=== PATIENT | male | born 1985 | race Caucasian/White ===

== ENCOUNTER 2018-10-27 13:07 | Emergency (ER) | payer OTHER ==
[~2018-10-27] VITALS: Ht 170.2 cm; Wt 97.5 kg
[2018-10-27] MEDS ORDERED: IBUPROFEN 800800 M1 PO (15:11)
[2018-10-27] MEDS ORDERED: KEFLEX500 M1 PO (15:11)
[2018-10-27] MEDS ORDERED: NORCO 5-325 TA1 EAC1 PO (15:11)
[2018-10-27 15:21] VITALS: BP 153/98
== END 2018-10-27 15:39 | disposition home or self-care (01) ==
LOC: M.ERS 13:07
DX: S62.603A Fracture of unspecified phalanx of left middle finger, initial encounter for closed fracture (principal); S61.215A Laceration without foreign body of left ring finger without damage to nail, initial encounter; S61.213A Laceration without foreign body of left middle finger without damage to nail, initial encounter; Z90.49 Acquired absence of other specified parts of digestive tract; W26.8XXA Contact with other sharp object(s), not elsewhere classified, initial encounter; Y93.89 Activity, other specified; Y92.89 Other specified places as the place of occurrence of the external cause; Y99.0 Civilian activity done for income or pay